=== PATIENT | female | born 1975 | race Caucasian/White ===

== ENCOUNTER 2020-03-13 12:29 | Inpatient (IN) ==
[2020-03-13] MEDS ORDERED: HYDROmorphone 2 MG/1 ML VIAL IV STA (13:24)
[2020-03-13] MEDS ORDERED: ONDANSETRON 4 MG/2 ML VIAL IV STA (13:24)
[2020-03-13] MEDS ORDERED: DIPH/TET/ACEL PERT BOOSTER VACCINE 0.5 ML VIAL IM ONE (13:24)
[2020-03-13] MEDS ORDERED: VANCOMYCIN INJ 1,000 MG in SODIUM CHLORIDE 0.9% 250 ML IV STA (13:25)
[2020-03-13 14:17] LABS: Basophils % 0.3 % (0.0-0.8); Eosinophils # 0.1 10*3/uL (0.0-0.87); Eosinophils % 0.7 % (0.00-10.9); Hematocrit 34.2 VOL% (35.7-47.0); Hemoglobin 10.7 GM/DL (12.0-16.0); Immature Granulocytes % 2.3 %; Immature Granulocytes Absolute 0.35 #; Lymphocytes # 2.8 10*3/uL (1.4-4.0); Lymphocytes % 18.6 % (21.3-54.2); Mean Corpuscular HGB Conc 31.3 GM/DL (32-36); Mean Corpuscular Volume 85.7 FL (87-102); Mean Platelet Volume 9.3 FL (9.6-12.0); Monocytes % 6.4 % (1.7-12.7); Neutrophils % 71.7 % (38.7-73.9); Platelet Count 354 T/CUMM (130-400); Red Blood Count 3.99 MC/CUMM (3.8-5.5); Red Cell Distribution Width 14.2 % (9.3-17.3); White Blood Count 15.1 T/CUMM (4-12)
[2020-03-13 14:35] LABS: Alanine Aminotransferase 16 U/L (13-56); Albumin 2.3 G/DL (3.4-5.0); Alkaline Phosphatase 98 U/L (45-117); Aspartate Amino Transferase 13 U/L (0-37); Bilirubin,Total < 0.39 MG/DL (0.2-1.0); Blood Urea Nitrogen 15 MG/DL (7-18); Calcium 8.6 MG/DL (8.5-10.1); Estimated Glom Filtration Rate 65 ML/MIN; Glucose 327 MG/DL (74-106); Osmolality,Calculated 273.8 MOS/KG (273-304); Total Protein 7.5 G/DL (6.4-8.3)
[2020-03-13] MEDS ORDERED: GLUCAGON 1 MG VIAL IM PRN ×2 (14:39)
[2020-03-13] MEDS ORDERED: DEXTROSE 10% 250 ML BAG IV PRN (14:39)
[2020-03-13] MEDS ORDERED: DEXTROSE 50% 25 GM/50 ML VIAL IV PRN (14:39)
[2020-03-13] MEDS ORDERED: INSULIN LISPRO 100 UNIT/ML SUBCUT STA (15:36)
[2020-03-13] MEDS ORDERED: NICOTINE 7 MG/24 HR PATCH TRANSDERM PRN (15:37)
[2020-03-13] MEDS: INSULIN REGULAR 100 UNIT/ML SUBCUT SCH ×2 (17:41→21:15)
[2020-03-13] MEDS: PIPERACILLIN/TAZOBACTAM 3,375 MG in SODIUM CHLORIDE 0.9% 100 ML IV SCH (17:43)
[2020-03-13] MEDS: SODIUM CHLORIDE 0.9% 1,000 ML IV SCH (17:43)
[2020-03-13] MEDS: VANCOMYCIN INJ 1,500 MG in SODIUM CHLORIDE 0.9% 500 ML IV SCH (21:59)
[2020-03-14] MEDS: PIPERACILLIN/TAZOBACTAM 3,375 MG in SODIUM CHLORIDE 0.9% 100 ML IV SCH ×3 (01:59→17:24)
[2020-03-14] MEDS: SODIUM CHLORIDE 0.9% 1,000 ML IV SCH ×3 (02:04→16:07)
[2020-03-14 06:06] LABS: Basophils # 0.1 10*3/uL (0.0-0.2); Basophils % 0.5 % (0.0-0.8); Eosinophils # 0.2 10*3/uL (0.0-0.87); Eosinophils % 1.1 % (0.00-10.9); Hematocrit 33.8 VOL% (35.7-47.0); Hemoglobin 10.4 GM/DL (12.0-16.0); Immature Granulocytes % 2.8 %; Immature Granulocytes Absolute 0.44 #; Lymphocytes # 2.9 10*3/uL (1.4-4.0); Lymphocytes % 18.3 % (21.3-54.2); Mean Corpuscular HGB Conc 30.8 GM/DL (32-36); Mean Corpuscular Volume 87.1 FL (87-102); Mean Platelet Volume 9.5 FL (9.6-12.0); Monocytes % 6.9 % (1.7-12.7); Neutrophils % 70.4 % (38.7-73.9); Platelet Count 398 T/CUMM (130-400); Red Blood Count 3.88 MC/CUMM (3.8-5.5); Red Cell Distribution Width 14.6 % (9.3-17.3); White Blood Count 15.7 T/CUMM (4-12)
[2020-03-14 06:26] LABS: Calcium 8.6 MG/DL (8.5-10.1); Osmolality,Calculated 276.4 MOS/KG (273-304)
[2020-03-14] MEDS ORDERED: CLINDAMYCIN INJ 900 MG in PREMIX 1 EACH IV ONE (06:56)
[2020-03-14] MEDS: INSULIN REGULAR 100 UNIT/ML SUBCUT SCH ×4 (08:49→20:41)
[2020-03-14] MEDS: MORPHINE 4 MG/1 ML VIAL IV PRN ×2 (08:49→20:40)
[2020-03-14] MEDS ORDERED: propofoL 200 MG/20 ML VIAL IV ONE (12:46)
[2020-03-14] MEDS ORDERED: HYDROmorphone 2 MG/1 ML VIAL ONE (12:46)
[2020-03-14] MEDS ORDERED: SEVOFLURANE 1 UNIT/15 MINUTE INH ONE (12:46)
[2020-03-14] MEDS ORDERED: fentaNYL 100 MCG/2 ML VIAL ONE (12:46)
[2020-03-14] MEDS ORDERED: LIDOCAINE 2% 5 ML VIAL ONE (12:46)
[2020-03-14] MEDS ORDERED: ONDANSETRON 4 MG/2 ML VIAL ONE (12:47)
[2020-03-14] MEDS ORDERED: PHENYLEPHRINE 1 MG/10 ML SYRINGE IV ONE (12:47)
[2020-03-14] MEDS ORDERED: MIDAZOLAM 2 MG/2 ML VIAL ONE (12:47)
[2020-03-14] MEDS ORDERED: ONDANSETRON 4 MG/2 ML VIAL IV PRN (12:48)
[2020-03-14] MEDS: HYDROmorphone 2 MG/1 ML VIAL IV PRN ×2 (12:50→12:55)
[2020-03-14] MEDS: VANCOMYCIN INJ 1,500 MG in SODIUM CHLORIDE 0.9% 500 ML IV SCH ×2 (14:47→20:42)
[2020-03-14] MEDS ORDERED: ACETAMINOPHEN 325 MG TABLET PO PRN (22:07)
[2020-03-15] MEDS: SODIUM CHLORIDE 0.9% 1,000 ML IV SCH ×3 (00:57→16:20)
[2020-03-15] MEDS: PIPERACILLIN/TAZOBACTAM 3,375 MG in SODIUM CHLORIDE 0.9% 100 ML IV SCH ×2 (02:16→10:04)
[2020-03-15 06:05] LABS: Basophils # 0.1 10*3/uL (0.0-0.2); Basophils % 0.7 % (0.0-0.8); Eosinophils # 0.3 10*3/uL (0.0-0.87); Eosinophils % 2.3 % (0.00-10.9); Hematocrit 32.8 VOL% (35.7-47.0); Hemoglobin 10.1 GM/DL (12.0-16.0); Immature Granulocytes % 5.5 %; Lymphocytes # 3.1 10*3/uL (1.4-4.0); Lymphocytes % 28.6 % (21.3-54.2); Mean Corpuscular HGB Conc 30.8 GM/DL (32-36); Mean Corpuscular Volume 86.3 FL (87-102); Mean Platelet Volume 9.4 FL (9.6-12.0); Monocytes % 8.1 % (1.7-12.7); Neutrophils % 54.8 % (38.7-73.9); Platelet Count 340 T/CUMM (130-400); Red Cell Distribution Width 14.5 % (9.3-17.3); White Blood Count 10.9 T/CUMM (4-12)
[2020-03-15 06:32] LABS: Atypical Lymphocytes Few; Band Neutrophils 2 % (0-10); Eosinophils 1 % (0-10); Lymphocytes 26 % (20-55); Metamyelocytes 1 %; Myelocytes 1 %; Segmented Neutrophils 62 % (50-85); Total Cells Counted 100
[2020-03-15 06:33] LABS: Hypochromasia 1+; Microcytosis Slight; Osmolality,Calculated 277.8 MOS/KG (273-304); Platelet Estimate Normal
[2020-03-15] MEDS: INSULIN REGULAR 100 UNIT/ML SUBCUT SCH ×4 (08:22→20:11)
[2020-03-15] MEDS: SODIUM HYPOCHLORITE 0.25% IRRIG 473 ML BOTTLE TOP SCH (09:38)
[2020-03-15] MEDS: VANCOMYCIN INJ 1,500 MG in SODIUM CHLORIDE 0.9% 500 ML IV SCH ×2 (10:14→20:12)
[2020-03-16] MEDS: SODIUM CHLORIDE 0.9% 1,000 ML IV SCH ×2 (01:50→07:17)
[2020-03-16 06:41] LABS: Basophils # 0.1 10*3/uL (0.0-0.2); Basophils % 0.9 % (0.0-0.8); Eosinophils # 0.3 10*3/uL (0.0-0.87); Eosinophils % 2.6 % (0.00-10.9); Hemoglobin 10.2 GM/DL (12.0-16.0); Immature Granulocytes % 9.2 %; Immature Granulocytes Absolute 0.89 #; Lymphocytes # 3.7 10*3/uL (1.4-4.0); Lymphocytes % 37.7 % (21.3-54.2); Mean Corpuscular Volume 88.8 FL (87-102); Mean Platelet Volume 9.3 FL (9.6-12.0); Monocytes % 7.9 % (1.7-12.7); Neutrophils % 41.7 % (38.7-73.9); Platelet Count 367 T/CUMM (130-400); Red Blood Count 3.83 MC/CUMM (3.8-5.5); Red Cell Distribution Width 14.1 % (9.3-17.3); White Blood Count 9.7 T/CUMM (4-12)
[2020-03-16 07:00] LABS: Calcium 7.9 MG/DL (8.5-10.1); Osmolality,Calculated 277.7 MOS/KG (273-304)
[2020-03-16 07:41] LABS: Eosinophils 5 % (0-10); Lymphocytes 33 % (20-55); Metamyelocytes 1 %; Myelocytes 3 %; Segmented Neutrophils 48 % (50-85); Total Cells Counted 100
[2020-03-16 07:44] LABS: Hypochromasia 1+; Microcytosis Slight; Platelet Estimate Normal
[2020-03-16 07:45] LABS: Atypical Lymphocytes Few
[2020-03-16] MEDS: INSULIN REGULAR 100 UNIT/ML SUBCUT SCH ×4 (09:36→20:58)
[2020-03-16] MEDS: VANCOMYCIN INJ 1,500 MG in SODIUM CHLORIDE 0.9% 500 ML IV SCH ×2 (10:15→23:00)
[2020-03-16] MEDS: SODIUM HYPOCHLORITE 0.25% IRRIG 473 ML BOTTLE TOP SCH (10:16)
[2020-03-17 07:12] LABS: Basophils # 0.1 10*3/uL (0.0-0.2); Basophils % 0.9 % (0.0-0.8); Eosinophils # 0.2 10*3/uL (0.0-0.87); Eosinophils % 2.3 % (0.00-10.9); Hematocrit 33.4 VOL% (35.7-47.0); Hemoglobin 10.2 GM/DL (12.0-16.0); Immature Granulocytes % 9.2 %; Immature Granulocytes Absolute 0.98 #; Lymphocytes # 4.1 10*3/uL (1.4-4.0); Lymphocytes % 38.7 % (21.3-54.2); Mean Corpuscular HGB Conc 30.5 GM/DL (32-36); Mean Corpuscular Volume 86.8 FL (87-102); Mean Platelet Volume 9.1 FL (9.6-12.0); Monocytes % 6.7 % (1.7-12.7); Neutrophils % 42.2 % (38.7-73.9); Platelet Count 415 T/CUMM (130-400); Red Blood Count 3.85 MC/CUMM (3.8-5.5); White Blood Count 10.6 T/CUMM (4-12)
[2020-03-17 07:41] VITALS: BP 144/77
[2020-03-17 07:49] LABS: Calcium 8.7 MG/DL (8.5-10.1); Osmolality,Calculated 274.8 MOS/KG (273-304)
[2020-03-17 07:52] LABS: Band Neutrophils 2 % (0-10); Eosinophils 2 % (0-10); Lymphocytes 42 % (20-55); Metamyelocytes 2 %; Myelocytes 3 %; Segmented Neutrophils 39 % (50-85); Total Cells Counted 100
[2020-03-17 07:54] LABS: Atypical Lymphocytes Few; Hypochromasia 1+; Microcytosis Slight
[2020-03-17 07:55] LABS: Platelet Estimate Increased
[2020-03-17] MEDS: INSULIN REGULAR 100 UNIT/ML SUBCUT SCH (09:14)
[2020-03-17] MEDS: SODIUM HYPOCHLORITE 0.25% IRRIG 473 ML BOTTLE TOP SCH (09:14)
[2020-03-17] MEDS ORDERED: VANCOMYCIN INJ 1,250 MG in SODIUM CHLORIDE 0.9% 250 ML IV SCH (11:00)
== END 2020-03-17 10:30 | disposition home health service (06) | DRG 988 ==
LOC: N.ED 12:29 → N.EDINP 14:39 → N.3E 16:28
PROVIDERS: ADMIT Internal Medicine; ATTEND Internal Medicine